=== PATIENT | male | born 1980 | race Caucasian/White ===

== ENCOUNTER 2024-01-04 09:54 | Outpatient (AMB) | payer MEDICAID, SELFPAY ==
--- NOTE | 2024-01-04 09:56 | MHC.OFFVIS ---
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 Pt does have some difficulty recalling details of history d/t duration of his s/s. Although he does have notes with him to help. PCP and [facility] notes were also reviewed to clarify history. Pt reports on Feb 16, 2021, he states that [place] had [place], came back into the house as his child was stung by a bee. He started feel fuzzy, so he laid down and then from there on every time he tried to get up or move, he started to have room spinning dizziness triggered by moving his head and he could barely move. This was intense x's 2 weeks, were he could not move at all. He states that his friend who is a PT- told him he had a negative Romberg's. During this time, he also developed nausea, head pressure in either side of head. Then he started to develop trailing vision if he moved his head. Cognitive fog. 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 This persisted x's at least 4-6 weeks. He could not return to work x's 4 months as he needed to see neurologist. The episodes of dizziness had been better, however pt states they returned after he had bout of cardiac s/s and was tried on Sertraline and Buspar (took for 1 month and then stopped as was not effective and did not think they were helpful). He currently is having 6-7 episodes of head pressure, dizziness, photophobia, osmophobia, nausea, brain fog. He takes Tylenol ES 500mg prn. He has tried to determine triggers- avoiding chocolate. He has stopped alcohol and tobacco use. But recently did try a light beer and marijuana- which did not help. He describes the cardiac s/s, as beginning in November 2022, he had episode of chest tightness and racing heart rate. He went to the ER, and cardiac work-up was normal. He had another episode after being exposed to truck fumes. States cardiac work-up has been normal. Currently he has been having muscle spasms in his arms, legs, chest- he notes that the more he notices this the worse it is. He is overall not sleeping as well. He is often fatigued. He wakes up in the middle of the night, feeling a skipped beat. He has been told he snores. He feels episodes of cold, internal tremor, dizziness, internal tremor, heart racing, 1/10 chest pressure, penis turtles in - takes a bottle of water, Tylenol, and walks for a mile. He is working out 6 days a week- going to the gym- doing some weight training circuit, walks 5-10 miles a day. Avoids HR > 140 to prevent a panic attacks. He also notes that he has had recent labs showing abnormal lipids and had to have f/u abd US and f/u labs. 04/2023- Endocrinology consult- advised to f/u prn. Pt states he did take wellbutrin, adderall, and zyprexa as a child for ADHD, mood, and sleep. He had stopped these as thye made him feel not like himself. He is seeing a therapist through his school- but states he needs a new therapist. 2020, Brain MRI w/wo: No acute/subacute infarct, hemorrhage, mass, or abnormal enhancement. Unremarkable bilateral internal auditory canals. Minimal nonspecific white matter T2 hyperintensities. Majority of patients with these findings do not have a pathologic correlate. [facility] Medical History (Updated 01/04/24 @ 21:03 by KIMBERLEE Nowak) H/O attention deficit hyperactivity disorder Tremors of nervous system Depression Surgical History (Updated 01/04/24 @ 10:03 by JULIO Stephen) Hx of tonsillectomy Family History (Updated 01/04/24 @ 10:04 by JULIO Stephen) Father Anxiety Depression HTN (hypertension) Alcohol abuse Mother Arthritis Brother ADHD Social History (Updated 01/04/24 @ 10:05 by JULIO Stephen) Alcohol intake: never Patient Tobacco Use Status: Never used Tobacco Physical Exam Vital Signs: Last Vital Signs Pulse 88 01/04/24 09:59 BP 180/94 H 01/04/24 09:59 Pulse Ox 97 01/04/24 09:59 Oxygen Delivery Method Room Air 01/04/24 09:59 BMI result Body Mass Index 34.3 Const Orientation/consciousness: patient oriented x3 Resp Effort & Inspection: normal respiratory effort and able to speak in complete sentences Neuro Other: No palpable scalp tenderness. No tone in BUE. No visible tremor or muscle fasiculations. General: patient oriented x3 Cranial nerves: Yes CN's II-XII intact bilaterally Cognition (Neuro): normal cognition Gait exam (Neuro): Normal gait present Motor exam (neuro): 5/5 motor strength present throughout Deep tendon reflexes (DTR's): Right triceps reflex intensity grade: 2+, Left triceps reflex intensity grade: 2+, Rt Biceps (C5, C6): 2+, Left biceps reflex intensity grade: 2+, Right brachioradialis reflex intensity grade: 2+, Left brachioradialis reflex intensity grade: 2+, Right patellar reflex intensity grade: 2+ and Left patellar reflex intensity grade: 2+ Coordination: ualtzy-ju-jhet test normal, tandem gait normal and Romberg test negative Pupils: Normal pupillary reactivity/response: bilateral Psych Appearance: grossly normal Mental Status: mental status grossly normal Speech and movement: Normal speech and movement present Affect: normal affect and Anxious affect present Attitude: cooperative Thought process: Circumstantial thought process present Assessment & Plan Assessment & Plan (1) Vertigo: Comment: Likely vestibular migraine. Dizziness, pressure DUKE, photophobia, nausea, brain fog. Code(s): R42 - Dizziness and giddiness Category: Medical (2) Sleep difficulties: Code(s): G47.9 - Sleep disorder, unspecified Category: Medical (3) Fatigue: Code(s): R53.83 - Other fatigue Category: Medical (4) Headache: Code(s): R51.9 - Headache, unspecified Category: Medical (5) Anxiety: Code(s): F41.9 - Anxiety disorder, unspecified Category: Medical Plan Will request recent labs from PCP. Pt is advised to undergo: PT eval & tx- vestibular tx. Home sleep study to assess for sleep apnea. Psychology and psychiatry consult. Trial Amitriptyline 10mg qhs for vestibular migraine prevention. Advised that this may take at least 2 months to see full effect. Future considerations: Riboflavin, Magnesium, triptan, neuromodulation device. Pt seen in c/w Dr Ying Maria. f/u upon review of above and in-clinic in 6 months or sooner prn. Orders: Orders PT Evaluation and Treatment Today R42 - Dizziness and giddiness RT home sleep study Today G47.9 - Sleep disorder, unspecified, R06.83 - Snoring, R53.83 - Other fatigue Referrals Psychology Referral F41.0 - Panic disorder [episodic paroxysmal anxiety], F41.9 - Anxiety disorder, unspecified Psychiatry Referral F41.0 - Panic disorder [episodic paroxysmal anxiety], F41.9 - Anxiety disorder, unspecified, Z86.59 - Personal history of other mental and behavioral disorders Medications: New amitriptyline 10 mg PO BEDTIME 30 tabs 3RF vestibular migraine prevention 30 days Coding Level of Care Code New Pt Level 4 (93659) Diagnoses Vertigo R42 Sleep difficulties G47.9 Fatigue R53.83 Headache R51.9 Anxiety F41.9
[2024-01-04 09:59] VITALS: BP 180/94; PULSE 88; O2SAT 97; BMI 34.3
== END 2024-01-04 11:49 | disposition home or self-care (01) ==
PROVIDERS: PCP Internal Medicine; Visit Provider Nurse Practitioner Family
DX: R42 Dizziness and giddiness (principal); G47.9 Sleep disorder, unspecified; R53.83 Other fatigue; R51.9 Headache, unspecified; F41.9 Anxiety disorder, unspecified
CPT/HCPCS: 99204

== ENCOUNTER → 2024-01-04 09:54 | Outpatient (BNVA) | payer MEDICAID, SELFPAY | PROVIDERS: PCP Internal Medicine; Visit Provider Nurse Practitioner Family | DX: R42 Dizziness and giddiness (principal); R53.83 Other fatigue; R51.9 Headache, unspecified; G47.9 Sleep disorder, unspecified; F41.9 Anxiety disorder, unspecified | CPT/HCPCS: 99212 ==

== ENCOUNTER 2024-07-14 10:50 | Outpatient (AMB) | payer MEDICAID, SELFPAY ==
--- NOTE | 2024-07-14 11:00 | MHC.OFFVIS ---
Vital Signs 07/14/24 11:01 Height 5 ft 9 in Weight 230 lb BMI 34.0 BP 150/90 H Blood Pressure Location Lt brachial Position Sitting Pulse 97 Pulse Source Pulse Oximeter Pulse Oximetry (%) 97 Oxygen Delivery Method Room Air Intake Visit Reasons: 6mo f/u Intake Note: Patient presents follow uo vertigo/headache. PT in chart, Patient declined HST(order cx), psych patient established Reporting Coordinator Required: No Accompanied by: Self / Same As Patient Allergies No Known Allergies Allergy (Verified 07/14/24 11:04) Medication List - Last Reconciled 07/14/24 by Tracey Campbell, [facility] DEVELOP[facility] dextroamphetamine-amphetamine 10 mg (Adderall) 10 mg PO DAILY lorazepam 0.5 mg PO DAILY PRN HPI Comments Details: Right-handed 43-yr-old male presents for follow-up of vertigo which started in 2020. The patient is a 44-year-old male presenting with vestibular migraine and sleep disturbances. Initial onset in September 2020 [id number] vaccination. symptoms suggestive of vestibular migraine- chronic dizziness, head buzzing, and light sensitivity. He denies a headache, though acknowledges some degree of head discomfort during these episodes. Persistent fatigue and exertion intolerance. Panic attacks reduced to monthly frequency, previously severe. Currently using fluids and rarely Tylenol. Medication trials with adverse effects, reluctance for long-term use, thus, he did not try amitriptyline as it requires a 4-8 week trial and he also notes it has risk for exacerbating mood symptoms. However, he did do vestibular PT, though he is not sure if it was helpful. he is curious about craniosacral therapy or something that can relax his nervous system. His maternal aunt has migraine, however it is a more classic migraine per patient description. Review of Systems - Neurological: Reports head buzzing, dizziness, sensitivity to light, head pressure without typical headache. - Psychiatric: Reports decreased enjoyment, often feels numb emotionally but also physically. - Cardiovascular: Reports exertion intolerance, history of spasms, fear of tachycardia. - Gastrointestinal: Reports prior episodes of uncontrollable diarrhea with medication. Headache Lifestyle Factors - Caffeine intake: Avoids coffee due to symptom triggers, occasionally consumes Frappuccino. - Hydration: Consumes four to five bottles of water daily. - Sleep: Generally six hours nightly, inconsistent bedtime, often disrupted by panic episodes. Exercise - Avoids due to exacerbation of dizziness. - Use of slow, deliberate movements to minimize triggering symptoms. Food The patient previously limited dietary intake due to migraine triggers but reports having expanded diet slightly without significant improvement. Sleep - Bedtime variable, sometimes as late as 11 PM. - Typical sleep onset within acceptable time frame. - Awakens consistently at 6 AM. - Studies report fragmented sleep due to panic/severe fatigue. 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 Diagnostic results - Prior MRI scan did not reveal brain abnormalities relevant to symptoms. Initial HPI 01/04/2024: Pt does have some difficulty recalling details of history d/t duration of his s/s. Although he does have notes with him to help. PCP and [facility] notes were also reviewed to clarify history. Pt reports on Feb 16, 2021, he states that [place] came [place] into the house as his child was stung by a bee. He started feel fuzzy, so he laid down and then from there on every time he tried to get up or move, he started to have room spinning dizziness triggered by moving his head and he could barely move. This was intense x's 2 weeks, were he could not move at all. He states that his friend who is a PT- told him he had a negative Romberg's. During this time, he also developed nausea, head pressure in either side of head. Then he started to develop trailing vision if he moved his head. Cognitive fog. 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 This persisted x's at least 4-6 weeks. He could not return to work x's 4 months as he needed to see neurologist. The episodes of dizziness had been better, however pt states they returned after he had bout of cardiac s/s and was tried on Sertraline and Buspar (took for 1 month and then stopped as was not effective and did not think they were helpful). He currently is having 6-7 episodes of head pressure, dizziness, photophobia, osmophobia, nausea, brain fog. He takes Tylenol ES 500mg prn. He has tried to determine triggers- avoiding chocolate. He has stopped alcohol and tobacco use. But recently did try a light beer and marijuana- which did not help. He describes the cardiac s/s, as beginning in November 2022, he had episode of chest tightness and racing heart rate. He went to the ER, and cardiac work-up was normal. He had another episode after being exposed to truck fumes. States cardiac work-up has been normal. Currently he has been having muscle spasms in his arms, legs, chest- he notes that the more he notices this the worse it is. He is overall not sleeping as well. He is often fatigued. He wakes up in the middle of the night, feeling a skipped beat. He has been told he snores. He feels episodes of cold, internal tremor, dizziness, internal tremor, heart racing, 1/10 chest pressure, penis turtles in - takes a bottle of water, Tylenol, and walks for a mile. He is working out 6 days a week- going to the gym- doing some weight training circuit, walks 5-10 miles a day. Avoids HR > 140 to prevent a panic attacks. He also notes that he has had recent labs showing abnormal lipids and had to have f/u abd US and f/u labs. 04/2023- Endocrinology consult- advised to f/u prn. Pt states he did take wellbutrin, adderall, and zyprexa as a child for ADHD, mood, and sleep. He had stopped these as thye made him feel not like himself. He is seeing a therapist through his school- but states he needs a new therapist. 2020, Brain MRI w/wo: No acute/subacute infarct, hemorrhage, mass, or abnormal enhancement. Unremarkable bilateral internal auditory canals. Minimal nonspecific white matter T2 hyperintensities. Majority of patients with these findings do not have a pathologic correlate. [facility] Medical History (Updated 01/04/24 @ 21:03 by KIMBERLEE Nowak) H/O attention deficit hyperactivity disorder Tremors of nervous system Depression Surgical History Hx of tonsillectomy Family History Father Anxiety Depression HTN (hypertension) Alcohol abuse Mother Arthritis Brother ADHD Social History Alcohol intake: never Patient Tobacco Use Status: Never used Tobacco Physical Exam Vital Signs: Last Vital Signs Pulse 97 07/14/24 11:01 BP 150/90 H 07/14/24 11:01 Pulse Ox 97 07/14/24 11:01 Oxygen Delivery Method Room Air 07/14/24 11:01 BMI result Body Mass Index 34.0 Const Orientation/consciousness: patient oriented x3 Resp Effort & Inspection: normal respiratory effort and able to speak in complete sentences Neuro General: patient oriented x3 Cranial nerves: Yes CN's II-XII intact bilaterally Cognition (Neuro): normal cognition Gait exam (Neuro): Normal gait present Motor exam (neuro): 5/5 motor strength present throughout Psych Appearance: grossly normal Speech and movement: Normal speech and movement present Attitude: cooperative Thought process: Circumstantial thought process present Assessment & Plan Assessment & Plan (1) Vertigo: Comment: Likely vestibular migraine. Dizziness, pressure DUKE, photophobia, nausea, brain fog. Code(s): R42 - Dizziness and giddiness Category: Medical (2) Anxiety: Code(s): F41.9 - Anxiety disorder, unspecified Category: Medical (3) Panic attacks: Code(s): F41.0 - Panic disorder [episodic paroxysmal anxiety] Category: Medical (4) Sleep difficulties: Code(s): G47.9 - Sleep disorder, unspecified Category: Medical Plan Discussion Notes I discussed with the patient the likelihood of a vestibular migraine diagnosis, impacting his perception and sensation without typical headache presentation. We reviewed the multifaceted approach to managing these symptoms and the significance of biofeedback therapy in regulating his sympathetic nervous response. I emphasized the difficulty in isolating a singular cause for his symptoms and the potential benefit of craniosacral therapy, alongside continued trial of lifestyle modifications for symptom relief. The importance of ruling out other causes through non-invasive therapies to manage symptoms was also discussed. Patient was informed and verbally consented to the use of an ambient scribe for clinic note documentation during this visit. Plan Vestibular migraine symptoms persist despite previous therapy. Recommend biofeedback and craniosacral therapy to address sympathetic overactivity. Avoid long-term pharmacological treatments due to past adverse effects in setting of current anxiety regarding medication use . Emphasis on non-pharmacologic management strategies. Patient Instructions - Continue using lorazepam as needed for panic symptoms. - start biofeedback therapy once scheduled - start PT for craniosacral therapy once scheduled - Report persistent or worsening symptoms. - Adjust lifestyle to manage light sensitivity and avoid symptom triggers. - Follow up with disability and maintain current employment as tolerated. - consider reordering home sleep study in follow-up Will follow-up upon review of above and patient to follow-up in clinic in 6 months or sooner prn. Orders: Orders PT Evaluation and Treatment 07/14/24 F41.9 - Anxiety disorder, unspecified, R42 - Dizziness and giddiness, R51.9 - Headache, unspecified Referrals Psychology Referral F41.9 - Anxiety disorder, unspecified, R42 - Dizziness and giddiness, R51.9 - Headache, unspecified, R53.83 - Other fatigue Coding Level of Care Code Est Pt Level 4 (35195) Diagnoses Vertigo R42 Anxiety F41.9 Panic attacks F41.0 Sleep difficulties G47.9
[2024-07-14 11:01] VITALS: BP 150/90; PULSE 97; O2SAT 97; BMI 34.0
--- OUTSIDE RECORDS SUMMARY | 2024-07-14 13:06 | XMS_ITS | Clinical Summary ---
Author Organization [facility] Address [address] [place] [id number] Phone [email or web address] Care Team Providers Care Vp Purchasing Name Role Phone Unavailable Primary Care Provider Unavailabl e Social History Tobacco Use Types Packs/Day Years Used Date Smoking Tobacco: Never Assessed Intimate Partner Violence Answer Date R ecorded Insults You Not on file 08/23/2020 Threatens You Not on file 08/23/2020 Screams at You Not on file 08/23/2020 Physically Hurt Not on file 08/23/2020 Intimate Partner Violence Score Not on file 08/23/2020 Stress Answer Date Recorded Stress in your Life 0 06/18/2020 Dealing with Stress Not on file 06/18/2020 Sex and Gender Information Value Date Recorded Sex Assigned at Not on file Legal Sex Male 12:17 AM CDT Gender Identity Not on file Sexual Orientation Not on file Last Filed Vital Signs Vital Sign Reading Time Taken Comments Blood Pressure 116/76 03/10/2020 12:00 AM CDT Pulse - - Temperature - - Respiratory Rate - - Oxygen Saturation - - Inhaled Oxygen Concentration - - Weight 108 kg (238 lb) 03/10/2020 12:00 AM CDT Height 177.8 cm (5' 10 ) 03/10/2020 12:00 AM CDT Body Mass Index 34.15 03/10/2020 12:00 AM CDT Plan of Treatment Not on file
== END 2024-07-14 12:00 | disposition home or self-care (01) ==
PROVIDERS: PCP Internal Medicine; Visit Provider Nurse Practitioner Family
DX: R42 Dizziness and giddiness (principal); F41.9 Anxiety disorder, unspecified; F41.0 Panic disorder [episodic paroxysmal anxiety]; G47.9 Sleep disorder, unspecified
CPT/HCPCS: 99214

== ENCOUNTER → 2024-07-14 10:50 | Outpatient (BNVA) | payer MEDICAID, SELFPAY | PROVIDERS: PCP Internal Medicine; Visit Provider Nurse Practitioner Family | DX: R42 Dizziness and giddiness (principal); F41.9 Anxiety disorder, unspecified; F41.0 Panic disorder [episodic paroxysmal anxiety]; R51.9 Headache, unspecified; R53.83 Other fatigue; G47.9 Sleep disorder, unspecified | CPT/HCPCS: 99212 ==

== ENCOUNTER 2025-01-11 09:47 | Outpatient (AMB) | payer MEDICAID, SELFPAY ==
[2025-01-11 10:07] VITALS: BP 140/100; PULSE 97; O2SAT 97; BMI 32.2
--- NOTE | 2025-01-11 10:07 | MHC.OFFVIS ---
Vital Signs 01/11/25 10:07 Height 5 ft 9 in Weight 218 lb BMI 32.2 BP 140/100 H Blood Pressure Location Lt brachial Position Sitting Pulse 97 Pulse Source Pulse Oximeter Pulse Oximetry (%) 97 Oxygen Delivery Method Room Air Intake Visit Reasons: 6 mnts Intake Note: Patient presents follow uo vertigo/headache. PT in chart, Patient declined HST(order cx), psych patient established Tomato Grader Required: No Accompanied by: Self / Same As Patient Allergies No Known Allergies Allergy (Verified 01/11/25 10:07) Medication List - Last Reconciled 01/11/25 by Tracey Campbell, KIMBERLEE dextroamphetamine-amphetamine 10 mg (Adderall) 10 mg PO DAILY lorazepam 0.5 mg PO DAILY PRN HPI Comments Details: Right-handed 44-yr-old male presents for follow-up of vertigo which started in 2020. Pt reports he is currently feeling mild . He is trying to wake up in a good mood. He reports he is trying to be aware of any potential triggers for it . He has difficulty describing what it is- but states initially he had intense fatigue, perception of peripheral swelling, feeling of hot lava over his chest, or a head zap and electrical sensation over his entire body, and head cloudiness, zapping pains, fasiculations, muscle spasms, palpitations, lightheadedness/dizziness. Denies recent bloating if he eats well, though can have bloating if he drinks a beer or eats more processed foods. These symptoms persist, which is frustrating, but he is trying to stay calm to avoid triggering his symptoms. He is seeing a psychologist weekly. He is trying to be active, but being mindful to not move his head quickly as this will cause dizziness. He still may have muscle spasms that move across his body, and can come and go over several episodes. He states he has not had a panic attack in over a month. He no longer wakes up feeling like he will when he wakes up- as he states that he is no longer waking up convulsing. He also states that he is aware that his symptoms are not going kill him , but trying to take one day at a time, but when he starts to talk about this he becomes frustrated by how the last 4 years of his life has been. He has accepted that he has his issues, and states that there is nothing to do about them other than preventing stress that could trigger him. He notes he has been able to be more social anddrinking a bit more socially- 3-4 drinks max. Tries to figure out what 07/14/2024, previous HPI: The patient is a 44-year-old male presenting with vestibular migraine and sleep disturbances. Initial onset in September 2020 [id number] vaccination. symptoms suggestive of vestibular migraine- chronic dizziness, head buzzing, and light sensitivity. He denies a headache, though acknowledges some degree of head discomfort during these episodes. Persistent fatigue and exertion intolerance. Panic attacks reduced to monthly frequency, previously severe. Currently using fluids and rarely Tylenol. Medication trials with adverse effects, reluctance for long-term use, thus, he did not try amitriptyline as it requires a 4-8 week trial and he also notes it has risk for exacerbating mood symptoms. However, he did do vestibular PT, though he is not sure if it was helpful. he is curious about craniosacral therapy or something that can relax his nervous system. His maternal aunt has migraine, however it is a more classic migraine per patient description. Review of Systems - Neurological: Reports head buzzing, dizziness, sensitivity to light, head pressure without typical headache. - Psychiatric: Reports decreased enjoyment, often feels numb emotionally but also physically. - Cardiovascular: Reports exertion intolerance, history of spasms, fear of tachycardia. - Gastrointestinal: Reports prior episodes of uncontrollable diarrhea with medication. Headache Lifestyle Factors Caffeine intake: Avoids coffee due to symptom triggers, occasionally consumes Frappuccino. Hydration: Consumes four to five bottles of water daily. Sleep: Generally six hours nightly, inconsistent bedtime, often disrupted by panic episodes. Exercise Avoids due to exacerbation of dizziness. Use of slow, deliberate movements to minimize triggering symptoms. Food The patient previously limited dietary intake due to migraine triggers but reports having expanded diet slightly without significant improvement. Sleep Bedtime variable, sometimes as late as 11 PM. Typical sleep onset within acceptable time frame. Awakens consistently at 6 AM. Studies report fragmented sleep due to panic/severe fatigue. 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 Diagnostic results Prior MRI scan did not reveal brain abnormalities relevant to symptoms. Initial HPI 01/04/2024: Pt does have some difficulty recalling details of history d/t duration of his s/s. Although he does have notes with him to help. PCP and [facility] notes were also reviewed to clarify history. Pt reports on Feb 16, 2021, he states that he had been walking in the [place], came back into the house as his child was stung by a bee. He started feel fuzzy, so he laid down and then from there on every time he tried to get up or move, he started to have room spinning dizziness triggered by moving his head and he could barely move. This was intense x's 2 weeks, were he could not move at all. He states that his friend who is a PT- told him he had a negative Romberg's. During this time, he also developed nausea, head pressure in either side of head. Then he started to develop trailing vision if he moved his head. Cognitive fog. 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 This persisted x's at least 4-6 weeks. He could not return to work x's 4 months as he needed to see neurologist. The episodes of dizziness had been better, however pt states they returned after he had bout of cardiac s/s and was tried on Sertraline and Buspar (took for 1 month and then stopped as was not effective and did not think they were helpful). He currently is having 6-7 episodes of head pressure, dizziness, photophobia, osmophobia, nausea, brain fog. He takes Tylenol ES 500mg prn. He has tried to determine triggers- avoiding chocolate. He has stopped alcohol and tobacco use. But recently did try a light beer and marijuana- which did not help. He describes the cardiac s/s, as beginning in November 2022, he had episode of chest tightness and racing heart rate. He went to the ER, and cardiac work-up was normal. He had another episode after being exposed to truck fumes. States cardiac work-up has been normal. Currently he has been having muscle spasms in his arms, legs, chest- he notes that the more he notices this the worse it is. He is overall not sleeping as well. He is often fatigued. He wakes up in the middle of the night, feeling a skipped beat. He has been told he snores. He feels episodes of cold, internal tremor, dizziness, internal tremor, heart racing, 1/10 chest pressure, penis turtles in - takes a bottle of water, Tylenol, and walks for a mile. He is working out 6 days a week- going to the gym- doing some weight training circuit, walks 5-10 miles a day. Avoids HR > 140 to prevent a panic attacks. He also notes that he has had recent labs showing abnormal lipids and had to have f/u abd US and f/u labs. 04/2023- Endocrinology consult- advised to f/u prn. Pt states he did take wellbutrin, adderall, and zyprexa as a child for ADHD, mood, and sleep. He had stopped these as thye made him feel not like himself. He is seeing a therapist through his school- but states he needs a new therapist. 2020, Brain MRI w/wo: No acute/subacute infarct, hemorrhage, mass, or abnormal enhancement. Unremarkable bilateral internal auditory canals. Minimal nonspecific white matter T2 hyperintensities. Majority of patients with these findings do not have a pathologic correlate. [facility] Medical History (Updated 01/11/25 @ 11:10 by KIMBERLEE Nowak) H/O attention deficit hyperactivity disorder Tremors of nervous system Depression Surgical History Hx of tonsillectomy Family History Father Anxiety Depression HTN (hypertension) Alcohol abuse Mother Arthritis Brother ADHD Social History Alcohol intake: never Patient Tobacco Use Status: Never used Tobacco Physical Exam Vital Signs: Last Vital Signs Pulse 97 01/11/25 10:07 BP 140/100 H 01/11/25 10:07 Pulse Ox 97 01/11/25 10:07 Oxygen Delivery Method Room Air 01/11/25 10:07 BMI result Body Mass Index 32.2 Const Orientation/consciousness: patient oriented x3 Resp Effort & Inspection: normal respiratory effort and able to speak in complete sentences Neuro General: patient oriented x3 Cranial nerves: Yes CN's II-XII intact bilaterally Cognition (Neuro): normal cognition Gait exam (Neuro): Normal gait present Motor exam (neuro): 5/5 motor strength present throughout Psych Appearance: grossly normal Speech and movement: Normal speech and movement present Attitude: cooperative Thought process: Circumstantial thought process present Assessment & Plan Assessment & Plan (1) Vertigo: Comment: Likely vestibular migraine. Dizziness, pressure [facility], photophobia, nausea, brain fog. Code(s): R42 - Dizziness and giddiness Category: Medical (2) Anxiety: Code(s): F41.9 - Anxiety disorder, unspecified Category: Medical (3) Panic attacks: Code(s): F41.0 - Panic disorder [episodic paroxysmal anxiety] Category: Medical (4) Sleep difficulties: Code(s): G47.9 - Sleep disorder, unspecified Category: Medical (5) Muscle cramps: Code(s): R25.2 - Cramp and spasm Category: Medical (6) Paresthesia: Code(s): R20.2 - Paresthesia of skin Category: Medical Plan Encouraged pt to continue to optimize his non-pharmacological lifestyle interventions he may benefit from trying a headcahe cooling cap or green light tx Pt states he will not take a medication at this time- is barely taking is current lorazepam and adderall tx. Continue psychotherapy BUE/BLE EMG/NCS and labs for underlying etiologies of cramps, spasms, fasiculations- ? MG, ? RLS, low suspicion for upper motor neuron d/o Will follow-up upon review of above and patient to follow-up in clinic in 6 months or sooner prn. Orders: Orders Ferritin Today R20.2 - Paresthesia of skin, R25.2 - Cramp and spasm, R53.83 - Other fatigue Comprehensive [place]. Panel Fast Today R20.2 - Paresthesia of skin, R25.2 - Cramp and spasm, R53.83 - Other fatigue Erythrocyte Sedimentation Rate Today R20.2 - Paresthesia of skin, R25.2 - Cramp and spasm, R53.83 - Other fatigue Acetylcholine Recept. Blocking Today R20.2 - Paresthesia of skin, R25.2 - Cramp and spasm, R53.83 - Other fatigue Acetylcholine Esthetic Dermatologist Modulating Today R20.2 - Paresthesia of skin, R25.2 - Cramp and spasm, R53.83 - Other fatigue MuSK Antibody Today R20.2 - Paresthesia of skin, R25.2 - Cramp and spasm, R53.83 - Other fatigue NE electromyogram (EMG) Today R20.2 - Paresthesia of skin, R25.2 - Cramp and spasm, R25.3 - Fasciculation, R53.83 - Other fatigue NE nerve conduction velocity Today R20.2 - Paresthesia of skin, R25.2 - Cramp and spasm, R25.3 - Fasciculation, R53.83 - Other fatigue Complete Blood Count Auto Diff Today R20.2 - Paresthesia of skin, R25.2 - Cramp and spasm, R53.83 - Other fatigue C Reactive Protein Today R20.2 - Paresthesia of skin, R25.2 - Cramp and spasm, R53.83 - Other fatigue Creatine Kinase Total Today R20.2 - Paresthesia of skin, R25.2 - Cramp and spasm, R53.83 - Other fatigue Magnesium Today R20.2 - Paresthesia of skin, R25.2 - Cramp and spasm, R53.83 - Other fatigue TSH reflex Free T4 Today R20.2 - Paresthesia of skin, R25.2 - Cramp and spasm, R53.83 - Other fatigue Acetylcholine Receptor Binding Today R20.2 - Paresthesia of skin, R25.2 - Cramp and spasm, R53.83 - Other fatigue Coding Level of Care Code Est Pt Level 4 (87922) Diagnoses Vertigo R42 Anxiety F41.9 Panic attacks F41.0 Sleep difficulties G47.9 Muscle cramps R25.2 Paresthesia R20.2
--- OUTSIDE RECORDS SUMMARY | 2025-01-11 10:52 | XMS_ITS | Clinical Summary ---
Author Organization [facility] [place] [address] Care Team Providers Care Sales Representative Graphic Art Name Role Phone None Primary Care Provider Unavailabl e Social History Tobacco Use Types Packs/Day Years Used Date Smoking Tobacco: Never Assessed Sex and Gender Information Value Date Recorded Sex Assigned at Not on file Legal Sex Male 2:37 PM EDT Gender Identity Not on file Sexual Orientation Not on file Last Filed Vital Signs Vital Sign Reading Time Taken Comments Blood Pressure 137/87 12/16/2022 6:57 PM EDT Pulse 74 12/16/2022 6:57 PM EDT Temperature - - Respiratory Rate 18 12/16/2022 6:57 PM EDT Oxygen Saturation 98% 12/16/2022 6:57 PM EDT Inhaled Oxygen Concentration - - Weight - - Height - - Body Mass Index - - Plan of Treatment Health Maintenance Due Date Last Done Comments HIV screen 2000 Hepatitis C Screening 2000 Lipid Screening 2000 Hepatitis B vaccine (0-59 yrs) and Risk (1) 2001 Tetanus/Diphtheria/Pertussis Vaccines (1 - Tdap) 03/26 Covid-19 Vaccine (1 - season) 2025 Influenza (Flu) vaccine (1 o f 1 - Influenza standard series) 01/09/2025 Insurance [facility] OOS Care Teams Sales Representative Graphic Art Relationship Specialty Start Date End Date None None PCP - General 12/16/22
--- OUTSIDE RECORDS SUMMARY | 2025-01-11 10:52 | XMS_ITS | Clinical Summary ---
Author Organization [facility] Address [address] [place] [id number] Phone [email or web address] Care Team Providers Care Pile Driver Operator Helper Name Role Phone Unavailable Primary Care Provider [...]
== END 2025-01-11 11:16 | disposition home or self-care (01) ==
LOC: HO.HSMS 09:47
PROVIDERS: PCP Internal Medicine; Visit Provider Nurse Practitioner Family
DX: R42 Dizziness and giddiness (principal); F41.9 Anxiety disorder, unspecified; F41.0 Panic disorder [episodic paroxysmal anxiety]; G47.9 Sleep disorder, unspecified; R25.2 Cramp and spasm; R20.2 Paresthesia of skin
CPT/HCPCS: 99214

== ENCOUNTER → 2025-01-11 09:47 | Outpatient (BNVA) | payer MEDICAID, SELFPAY | PROVIDERS: PCP Internal Medicine; Visit Provider Nurse Practitioner Family | DX: R42 Dizziness and giddiness (principal); R25.2 Cramp and spasm; G47.9 Sleep disorder, unspecified; R20.2 Paresthesia of skin; F41.0 Panic disorder [episodic paroxysmal anxiety]; F41.9 Anxiety disorder, unspecified; R53.83 Other fatigue | CPT/HCPCS: 99212 ==